=== PATIENT | female | born 1940 | race Caucasian/White ===

== ENCOUNTER → 2020-09-28 | Outpatient (CLI) | payer MEDICARE ==
[~2020-09-28] MED LIST: ASPIR-LOW81 MG PO; COLACE 100MG C100 MG PO; ECOTRIN81 MG PO; HABITROL 21 MG P1 EA TOP; JANUVIA50 MG PO; LOPRESSOR 25 MG25 MG PO; LORTAB 5-325 M1 EACH PO; MAALOX PLUS 3030 ML PO; NEURONTIN 300300 MG PO; PRILOSEC OTC20 MG PO; PROTONIX40 MG PO; SYMBICORT 160-1 INHA INH; TYLENOL 325MG325 MG PO; ZANTAC150 MG PO
[2020-09-28 16:41] LABS: HEMOGLOBIN 14.4 gm/dl (12.3-15.3); RED BLOOD COUNT 4.65 M/UL (4.00-5.10); WHITE BLOOD COUNT 12.1 K/UL (4.5-11.0)
== END ==
LOC: LAB 14:56
PROVIDERS: Nurse Practitioner
DX: J20.9 Acute bronchitis, unspecified (principal); R06.02 Shortness of breath; R07.1 Chest pain on breathing; I70.90 Unspecified atherosclerosis; J94.8 Other specified pleural conditions
CPT/HCPCS: 71046; 80053; 82550; 82553; 84484; 85025; 85379

== ENCOUNTER 2020-09-29 17:13 | Emergency (ER) | payer MEDICARE ==
[2020-09-29 19:20] LABS: HEMOGLOBIN 14.5 gm/dl (12.3-15.3); RED BLOOD COUNT 4.61 M/UL (4.00-5.10); WHITE BLOOD COUNT 12.5 K/UL (4.5-11.0)
[2020-09-29 19:41] LABS: BUN/CREATININE RATIO 17 (0-10)
== END 2020-09-30 00:15 | disposition home or self-care (01) ==
LOC: ER1 17:13
PROVIDERS: Physician Assistant
DX: R07.89 Other chest pain (principal); R06.02 Shortness of breath; R79.1 Abnormal coagulation profile; I25.10 Atherosclerotic heart disease of native coronary artery without angina pectoris; I25.2 Old myocardial infarction; E11.9 Type 2 diabetes mellitus without complications; I10 Essential (primary) hypertension; E78.5 Hyperlipidemia, unspecified; J44.9 Chronic obstructive pulmonary disease, unspecified; F17.210 Nicotine dependence, cigarettes, uncomplicated; Z88.1 Allergy status to other antibiotic agents; Z88.6 Allergy status to analgesic agent; Z91.041 Radiographic dye allergy status; Z88.8 Allergy status to other drugs, medicaments and biological substances
CPT/HCPCS: 80053; 82550; 82553; 82962; 83874; 83880; 84484; 85025; 85610; 85730; 93005; 96374; 96375; 99285; J1100; J1200; Q9965; Q9967

== ENCOUNTER 2021-05-04 17:14 | Emergency (ER) | payer MEDICARE | END 2021-05-04 18:48 | disposition left against medical advice (07) | LOC: ER1 17:14 | DX: Z53.21 Procedure and treatment not carried out due to patient leaving prior to being seen by health care provider (principal) ==

== ENCOUNTER 2021-05-30 15:05 | Inpatient (IN) | payer MEDICARE ==
[~2021-05-30] VITALS: Ht 162.6 cm; Wt 60.0 kg
[2021-05-30 16:57] LABS: HEMOGLOBIN 12.6 gm/dl (12.3-15.3); RED BLOOD COUNT 4.13 M/UL (4.00-5.10); WHITE BLOOD COUNT 7.5 K/UL (4.5-11.0)
[2021-05-30 17:32] LABS: BUN/CREATININE RATIO 25 (0-10)
[2021-05-31 03:54] LABS: HEMOGLOBIN 12.2 gm/dl (12.3-15.3); RED BLOOD COUNT 4.07 M/UL (4.00-5.10); WHITE BLOOD COUNT 6.8 K/UL (4.5-11.0)
[2021-05-31 04:17] LABS: BUN/CREATININE RATIO 32 (0-10)
[2021-05-31 05:35] LABS: BORDETELLA PARAPERTUSSIS Not Detected (Not Detectd); BORDETELLA PERTUSSIS Not Detected (Not Detectd); CHLAMYDIA PNEUMONIAE Not Detected (Not Detectd); CORONAVIRUS HKU1 Not Detected (Not Detectd); CORONAVIRUS NL63 Not Detected (Not Detectd); CORONAVIRUS OC43 Not Detected (Not Detectd); CORONOAVIRUS 229E Not Detected (Not Detectd); HUMAN METAPNEUMOVIRUS Not Detected (Not Detectd); HUMAN RHINOVIRUS/ENTEROVIRUS Not Detected (Not Detectd); INFLUENZA A Not Detected (Not Detectd); INFLUENZA B Not Detected (Not Detectd); MYCOPLASMA PNEUMONIAE Not Detected (Not Detectd); PARAINFLUENZA VIRUS 1 Not Detected (Not Detectd); PARAINFLUENZA VIRUS 2 Not Detected (Not Detectd); PARAINFLUENZA VIRUS 3 Not Detected (Not Detectd); PARAINFLUENZA VIRUS 4 Not Detected (Not Detectd); RESPIRATORY SYNCYTIAL VIRUS Not Detected (Not Detectd)
[2021-05-31 06:42] LABS: SARS-CoV-2 NOT DETECTED (Not Detectd)
[2021-05-31] MEDS ORDERED: ACTOS15 MG PO (09:15)
[2021-05-31] MEDS ORDERED: LIPITOR TAB 2020 MG PO (09:15)
[2021-05-31] MEDS ORDERED: AMLODIPINE BESYL5 MG PO (09:16)
--- NOTE | 2021-05-31 12:04 | NUR ---
UNABLE TO DETERMINE PACEMAKER MODEL, DAUGHTER STATES WILL GO HOME AND FIND "CARD" AND CALL BACK WITH INFORMATION TO HAVE PACEMAKER INTERROGATED
[2021-06-01 03:01] LABS: HEMOGLOBIN 11.5 gm/dl (12.3-15.3); RED BLOOD COUNT 3.82 M/UL (4.00-5.10)
[2021-06-01 03:06] LABS: WHITE BLOOD COUNT 14.6 K/UL (4.5-11.0)
[2021-06-01 03:36] LABS: BUN/CREATININE RATIO 35 (0-10)
[2021-06-02 03:38] LABS: HEMOGLOBIN 12.2 gm/dl (12.3-15.3); RED BLOOD COUNT 4.03 M/UL (4.00-5.10); WHITE BLOOD COUNT 17.2 K/UL (4.5-11.0)
[2021-06-02 04:44] LABS: BUN/CREATININE RATIO 34 (0-10)
[2021-06-03 03:31] LABS: HEMOGLOBIN 12.8 gm/dl (12.3-15.3); RED BLOOD COUNT 4.3 M/UL (4.00-5.10)
[2021-06-03 03:36] LABS: WHITE BLOOD COUNT 10.8 K/UL (4.5-11.0)
[2021-06-03] MEDS ORDERED: LEVOFLOXACIN500 MG PO (07:58)
[2021-06-03] MEDS ORDERED: ELIQUIS 5 MG TAB5 MG PO (07:58)
== END 2021-06-03 10:00 | disposition home health service (06) | DRG 193 ==
LOC: ER1 15:05 → CDU 17:48 → PROG CARE 17:48
PROVIDERS: Emergency Medicine; Internal Medicine; Physician Assistant; ADMIT Internal Medicine
PROC: 5A09457 Assistance with Respiratory Ventilation, 24-96 Consecutive Hours, Continuous Positive Airway Pressure (ICD-10-PCS; 2021-05-30)
PROC: B246ZZZ Ultrasonography of Right and Left Heart (ICD-10-PCS; principal; 2021-05-31)
PROC: 5A0945A Assistance with Respiratory Ventilation, 24-96 Consecutive Hours, High Flow/Velocity Cannula (ICD-10-PCS; 2021-05-31)
DX: J12.9 Viral pneumonia, unspecified (principal); J96.21 Acute and chronic respiratory failure with hypoxia; J96.22 Acute and chronic respiratory failure with hypercapnia; J44.0 Chronic obstructive pulmonary disease with (acute) lower respiratory infection; Z66 Do not resuscitate; Z20.822 Contact with and (suspected) exposure to COVID-19; E11.9 Type 2 diabetes mellitus without complications; I11.0 Hypertensive heart disease with heart failure; I50.9 Heart failure, unspecified; F17.210 Nicotine dependence, cigarettes, uncomplicated; K21.9 Gastro-esophageal reflux disease without esophagitis; I27.20 Pulmonary hypertension, unspecified; I48.91 Unspecified atrial fibrillation; E78.5 Hyperlipidemia, unspecified; Z96.653 Presence of artificial knee joint, bilateral; I08.3 Combined rheumatic disorders of mitral, aortic and tricuspid valves; Z96.643 Presence of artificial hip joint, bilateral; Z79.01 Long term (current) use of anticoagulants; Z79.82 Long term (current) use of aspirin; Z95.0 Presence of cardiac pacemaker; Z88.5 Allergy status to narcotic agent; Z88.0 Allergy status to penicillin; Z82.0 Family history of epilepsy and other diseases of the nervous system; Z82.49 Family history of ischemic heart disease and other diseases of the circulatory system; Z99.81 Dependence on supplemental oxygen
CPT/HCPCS: ECHO; 0240U; 36415; 36600; 71045; 71046; 80048; 80053; 81001; 82550; 82553; 82803; 82962; 83735; 83874; 83880; 84484; 85025; 85027; 87040; 87633; 93005; 93306; 94640; 94660; 94664; 94760; 96374; 96375; 97116-GP-CQ; 97161; 99285; C9113; J0692; J1120; J1940; J2920; J2930; J3370; J3475; J7050; J7070

== ENCOUNTER → 2021-07-07 | Outpatient (CLI) | payer MEDICARE ==
[~2021-07-07] MED LIST changes: +ACTOS15 MG PO; +AMLODIPINE BESYL5 MG PO; +ELIQUIS 5 MG TAB5 MG PO; +LEVOFLOXACIN500 MG PO; +LIPITOR TAB 2020 MG PO
== END ==
LOC: HEART 5 14:44
DX: J44.9 Chronic obstructive pulmonary disease, unspecified (principal); J30.9 Allergic rhinitis, unspecified
CPT/HCPCS: 94060; 94729

== ENCOUNTER → 2021-08-26 | Outpatient (CLI) | payer MEDICARE ==
[~2021-08-26] MED LIST changes: +CLEOCIN HCL300 MG PO; +ELIQUIS 2.5 MG2.5 MG PO; +FLONASE ALLER15.8 ML; +IPRATROPIUM BROMIDE INH; +LASIX20 MG PO; +LISINOPRIL-HCT1 EACH PO; +PROAIR HFA8.5 GM INH; +TRELEGY ELLIPT1 EACH INH; +TYLENOL325 MG PO
[2021-08-26 10:35] LABS: HEMOGLOBIN 13.3 gm/dl (12.3-15.3); RED BLOOD COUNT 4.55 M/UL (4.00-5.10); WHITE BLOOD COUNT 6.9 K/UL (4.5-11.0)
== END ==
LOC: LAB 10:13
PROVIDERS: Internal Medicine Cardiovascular Disease
DX: Z45.010 Encounter for checking and testing of cardiac pacemaker pulse generator [battery] (principal); I48.0 Paroxysmal atrial fibrillation
CPT/HCPCS: 36415; 71046; 80048; 85025

== ENCOUNTER → 2021-08-30 | Outpatient (CLI) | payer MEDICARE | LOC: CATH 08:44 | DX: Z45.010 Encounter for checking and testing of cardiac pacemaker pulse generator [battery] (principal); I49.5 Sick sinus syndrome; I48.0 Paroxysmal atrial fibrillation; I20.9 Angina pectoris, unspecified; I10 Essential (primary) hypertension; I73.9 Peripheral vascular disease, unspecified; E78.5 Hyperlipidemia, unspecified; J44.9 Chronic obstructive pulmonary disease, unspecified; Z87.891 Personal history of nicotine dependence; Z88.2 Allergy status to sulfonamides; Z88.5 Allergy status to narcotic agent; Z88.8 Allergy status to other drugs, medicaments and biological substances; Z91.041 Radiographic dye allergy status; Z79.01 Long term (current) use of anticoagulants; Z79.899 Other long term (current) drug therapy | CPT/HCPCS: 33213; 82962; 99152; 99153; C1785; J1644; J2250; J3010; J3370; J7040; J7050 ==

== ENCOUNTER → 2021-10-20 | Outpatient (CLI) | payer MEDICARE | LOC: OPSV 14:00 | DX: N30.00 Acute cystitis without hematuria (principal); Z88.6 Allergy status to analgesic agent; Z91.041 Radiographic dye allergy status; Z88.5 Allergy status to narcotic agent | CPT/HCPCS: 96372; J1335 ==

== ENCOUNTER → 2021-10-24 | Outpatient (CLI) | payer MEDICARE ==
[~2021-10-24] MED LIST changes: +ASPIRIN EC81 MG PO; +ATORVASTATIN CA20 MG PO; +BREZTRI AEROS10.7 GM INH; +IPRAT-ALBUT 0.5-3 ML INH; -NEURONTIN 300300 MG PO; +NEURONTIN300 MG PO; +NITROSTAT0.4 MG SL
== END ==
LOC: OPSV 14:00
DX: N30.00 Acute cystitis without hematuria (principal)
CPT/HCPCS: 96372; J1335

== ENCOUNTER → 2021-10-25 | Outpatient (CLI) | payer MEDICARE | LOC: OPSV 13:48 | DX: N30.00 Acute cystitis without hematuria (principal) | CPT/HCPCS: 96372; J1335 ==

== ENCOUNTER 2021-10-26 17:41 | Inpatient (IN) | payer MEDICARE ==
[~2021-10-26] VITALS: Ht 165.1 cm; Wt 61.3 kg
[~2021-10-26 17:41] MED LIST changes: -ASPIRIN EC81 MG PO; -ATORVASTATIN CA20 MG PO; -BREZTRI AEROS10.7 GM INH; -IPRAT-ALBUT 0.5-3 ML INH; -LEVOFLOXACIN750 MG PO; -NITROSTAT0.4 MG SL
[2021-10-26 18:58] LABS: HEMOGLOBIN 11.8 gm/dl (12.3-15.3); RED BLOOD COUNT 4.1 M/UL (4.00-5.10); WHITE BLOOD COUNT 7.3 K/UL (4.5-11.0)
[2021-10-26 19:25] LABS: BUN/CREATININE RATIO 26 (0-10)
[2021-10-27] MEDS ORDERED: AMLODIPINE BESYL5 MG PO (12:48)
[2021-10-27] MEDS ORDERED: ATORVASTATIN CA20 MG PO (12:50)
[2021-10-27] MEDS ORDERED: NITROSTAT0.4 MG SL (12:51)
[2021-10-27] MEDS ORDERED: BREZTRI AEROS10.7 GM INH (12:54)
[2021-10-27] MEDS ORDERED: IPRAT-ALBUT 0.5-3 ML INH (12:56)
[2021-10-27] MEDS ORDERED: ASPIRIN EC81 MG PO (17:08)
[2021-10-28 04:12] LABS: HEMOGLOBIN 12.7 gm/dl (12.3-15.3); RED BLOOD COUNT 4.43 M/UL (4.00-5.10)
[2021-10-29 01:40] LABS: RED BLOOD COUNT 4.2 M/UL (4.00-5.10); WHITE BLOOD COUNT 19.1 K/UL (4.5-11.0)
[2021-10-29] MEDS ORDERED: LEVOFLOXACIN750 MG PO (12:52)
== END 2021-10-29 14:45 | disposition home or self-care (01) | DRG 291 ==
LOC: ER1 17:41 → PROG CARE 23:20 → CDU 23:20 → PROG CARE 10-27 14:32
PROVIDERS: Internal Medicine; Physician Assistant; ADMIT Internal Medicine
PROC: 5A09357 Assistance with Respiratory Ventilation, Less than 24 Consecutive Hours, Continuous Positive Airway Pressure (ICD-10-PCS; principal; 2021-10-26)
PROC: 5A09357 Assistance with Respiratory Ventilation, Less than 24 Consecutive Hours, Continuous Positive Airway Pressure (ICD-10-PCS; 2021-10-28)
DX: I11.0 Hypertensive heart disease with heart failure (principal); J96.21 Acute and chronic respiratory failure with hypoxia; E43 Unspecified severe protein-calorie malnutrition; J96.22 Acute and chronic respiratory failure with hypercapnia; I50.33 Acute on chronic diastolic (congestive) heart failure; I48.20 Chronic atrial fibrillation, unspecified; J44.1 Chronic obstructive pulmonary disease with (acute) exacerbation; E87.1 Hypo-osmolality and hyponatremia; N17.9 Acute kidney failure, unspecified; E87.2 Acidosis; I49.5 Sick sinus syndrome; F17.200 Nicotine dependence, unspecified, uncomplicated; K21.9 Gastro-esophageal reflux disease without esophagitis; Z96.653 Presence of artificial knee joint, bilateral; I42.2 Other hypertrophic cardiomyopathy; Z20.822 Contact with and (suspected) exposure to COVID-19; E11.9 Type 2 diabetes mellitus without complications; Z99.81 Dependence on supplemental oxygen; Z95.0 Presence of cardiac pacemaker; Z83.3 Family history of diabetes mellitus; Z79.4 Long term (current) use of insulin; Z79.899 Other long term (current) drug therapy; Z79.82 Long term (current) use of aspirin; Z86.73 Personal history of transient ischemic attack (TIA), and cerebral infarction without residual deficits; Z88.0 Allergy status to penicillin; Z68.21 Body mass index [BMI] 21.0-21.9, adult
CPT/HCPCS: 0240U; 36415; 36600; 71046; 80048; 80053; 81001; 82550; 82553; 82803; 82962; 83036; 83605; 83735; 83880; 84484; 85025; 85027; 85610; 85730; 93005; 94640; 94660; 94664; 94760; 96374; 96375; 96376; 99285; C9113; G0378; J0696; J1940; J1956; J2920

== ENCOUNTER → 2021-10-26 | Outpatient (CLI) | payer MEDICARE ==
[~2021-10-26] VITALS: Ht 170.2 cm; Wt 59.0 kg
[~2021-10-26] MED LIST changes: +LEVOFLOXACIN750 MG PO
== END ==
LOC: OPSV 13:35
DX: N30.00 Acute cystitis without hematuria (principal)
CPT/HCPCS: 96372; J1335

== ENCOUNTER → 2021-11-16 | Outpatient (CLI) | payer MEDICARE ==
[~2021-11-16] MED LIST changes: +ASPIRIN EC81 MG PO; +ATORVASTATIN CA20 MG PO; +BREZTRI AEROS10.7 GM INH; +IPRAT-ALBUT 0.5-3 ML INH; +LEVOFLOXACIN750 MG PO; +NITROSTAT0.4 MG SL
== END ==
LOC: CT 14:41
DX: I73.9 Peripheral vascular disease, unspecified (principal); R93.89 Abnormal findings on diagnostic imaging of other specified body structures; J90 Pleural effusion, not elsewhere classified; K57.30 Diverticulosis of large intestine without perforation or abscess without bleeding
CPT/HCPCS: 75635; Q9967